=== PATIENT | male | born 1965 | race African-American/Black ===

== ENCOUNTER 2016-12-03 03:16 | Emergency (ER) | payer OTHER ==
[~2016-12-03] VITALS: Ht 185.4 cm; Wt 87.0 kg
[2016-12-03 03:26] VITALS: BP 143/80; PULSE 90; RESP 18; TEMP 98.1; O2SAT 100
[2016-12-03 03:29] VITALS: BP 158/103; PULSE 57; PULSE 61; RESP 18; O2SAT 100
[2016-12-03] MEDS ORDERED: SODIUM CHLORID 0.9% 500 ML INJ 500 ML IV ONE (03:30)
[2016-12-03] MEDS ORDERED: ceFAZolin 2 GM PREMIX 50 ML IV ONE (03:30)
[2016-12-03] MEDS ORDERED: SODIUM CHLORIDE 0.9% FLUSH 10 ML FLUSH IVF PRN (03:30)
[2016-12-03] MEDS ORDERED: ONDANSETRON HCL 4 MG/2 ML VIAL IVP ONE (03:30)
[2016-12-03] MEDS ORDERED: MORPHINE SULFATE 4 MG/ML INJ IV ONE (03:30)
[2016-12-03] MEDS ORDERED: AMLO5TAB2 PO (03:35)
--- NOTE | 2016-12-03 03:42 | PD ---
HPI Chief Complaint: Injury Time Seen by Provider: 03:21 Travel History International Travel<30 days: No Contact w/Intl Traveler<30days: No Traveled to known affect area: No History of Present Illness HPI The patient is a 51 year old male who presents to the [facility] emergency department with a history of accidentally having his third digit of the left hand pinched by the list of his tractor-trailer prior to arrival. The tip of the finger was amputated. The patient brought it in. The patient was brought in by ambulance services. The patient reports that he is right-handed. The patient denies having any other injuries associated with this. He reports that his tetanus was last updated in 2013. On review of systems, the patient denies any recent fevers, cough, congestion, chest pain, chest pressure, shortness of breath, abdominal pain, nausea, vomiting, or diarrhea. He denies having any urinary symptoms or neurologic symptoms. PFSH Past Medical History Narrative Medical The patient's past medical history is significant for hypertension. Hypertension: Yes Tetanus Vaccination: < 5 Years Influenza Vaccination: No Past Surgical History Narrative Surgical The Patient's past surgical history is significant for left arm skin grafts. Surgical History: No Previous Surgery Social History Alcohol Use: Yes (twice per week) Tobacco Use: Yes (occasionally) Substance Use: No Allergies-Medications (Allergen,Severity, Reaction): Coded Allergies: No Known Allergies (Unverified , 12/03/16) Reported Meds & Prescriptions Reported Meds & Active Scripts Active Reported Amlodipine (Amlodipine Besylate) 5 Mg Tab 5 Mg PO DAILY Review of Systems Except as stated in HPI: all other systems reviewed are Neg General / Constitutional: No: Fever Eyes: No: Visual changes HENT: No: Headaches Cardiovascular: No: Chest Pain or Discomfort Respiratory: No: Shortness of Breath Gastrointestinal: No: Abdominal Pain Genitourinary: No: Dysuria Musculoskeletal: Positive: Myalgias, Pain Skin: No Rash Neurologic: No: Weakness Psychiatric: No: Depression Endocrine: No: Polydipsia Hematologic/Lymphatic: No: Easy Bruising Physical Exam Narrative General: The patient is a well-developed well-nourished male in no acute distress. Head and Neck exam: Head is normocephalic atraumatic. Eyes: Pupils are equal round and reactive to light. Nose: Midline septum with pink mucous membranes Mouth: Dentition unremarkable. Moist mucus membranes. Posterior oropharynx is not erythematous. No tonsillar hypertrophy. Uvula midline. Airway patent. Neck: No palpable lymphadenopathy. No nuchal rigidity. No thyromegaly. Cardiovascular: Regular rate and rhythm without murmurs, gallops, or rubs. Lungs: Clear to auscultation bilaterally. No wheezes, rhonchi, or rales. Abdomen: Soft, without tenderness to palpation in all 4 quadrants of the abdomen. No guarding, rebound, or rigidity. Normal bowel sounds are audible. No tenderness on palpation of McBurney's point. Extremities: No clubbing, cyanosis, or edema. 2+ pulses in all 4 extremities. The area of interest is the left hand, the patient has a bandage in place over the third digit. The bandage was removed and the distal phalanx and the patient was noted to have an amputation just distal to the DIP joint involving the entire nail then including a two thirds of the finger pad. Neurologic Exam: Grossly nonfocal. Skin Exam: No rash noted. Data Data Last Documented VS Vital Signs Date Time Temp Pulse Resp B/P Pulse Ox O2 Delivery O2 Flow Rate FiO2 12/03/16 03:29 59 18 98 Room Air 12/03/16 03:29 158/103 12/03/16 03:26 98.1 Orders Finger ([id number]) (12/03/16 03:22) Complete Blood Count With Diff (12/03/16 03:22) Prothrombin Time / Inr (Pt) (12/03/16 03:22) Act Partial Throm Time (Ptt) (12/03/16 03:22) Iv Access Insert/Monitor (12/03/16 03:22) Ecg Monitoring (12/03/16 03:22) Oximetry (12/03/16 03:22) Cefazolin 2 Gm Premix (Ancef 2 Gm Premix (12/03/16 03:30) Morphine Inj (Morphine Inj) (12/03/16 03:30) Ondansetron Inj (Zofran Inj) (12/03/16 03:30) Sodium Chloride 0.9% Flush (Ns Flush) (12/03/16 03:30) Comprehensive Metabolic Panel (12/03/16 03:22) Sodium Chlorid 0.9% 500 Ml Inj (Ns 500 M (12/03/16 03:30) Povidone Iodine 10% Oint (Betadine 10% O (12/03/16 05:15) Labs Laboratory Tests Test 12/03/16 03:50 White Blood Count 4.5 TH/MM3 Red Blood Count 5.57 MIL/MM3 Hemoglobin 15.0 GM/DL Hematocrit 46.2 % Mean Corpuscular Volume 82.9 FL Mean Corpuscular Hemoglobin 26.8 PG Mean Corpuscular Hemoglobin 32.4 % Concent Red Cell Distribution Width 13.6 % Platelet Count 129 TH/MM3 Mean Platelet Volume 9.5 FL Neutrophils (%) (Auto) 41.6 % Lymphocytes (%) (Auto) 45.6 % Monocytes (%) (Auto) 8.6 % Eosinophils (%) (Auto) 2.9 % Basophils (%) (Auto) 1.3 % Neutrophils # (Auto) 1.9 TH/MM3 Lymphocytes # (Auto) 2.0 TH/MM3 Monocytes # (Auto) 0.4 TH/MM3 Eosinophils # (Auto) 0.1 TH/MM3 Basophils # (Auto) 0.1 TH/MM3 CBC Comment DIFF FINAL Differential Comment Prothrombin Time 10.9 SEC Prothromb Time International 1.0 RATIO Ratio Activated Partial 27.6 SEC Thromboplast Time Sodium Level 142 MEQ/L Potassium Level 3.8 MEQ/L Chloride Level 106 MEQ/L Carbon Dioxide Level 28.8 MEQ/L Anion Gap 7 MEQ/L Blood Urea Nitrogen 15 MG/DL Creatinine 0.91 MG/DL Estimat Glomerular Filtration 87 ML/MIN Rate Random Glucose 100 MG/DL Calcium Level 9.1 MG/DL Total Bilirubin 0.6 MG/DL Aspartate Amino Transf 32 U/L (AST/SGOT) Alanine Aminotransferase 59 U/L (ALT/SGPT) Alkaline Phosphatase 75 U/L Total Protein 7.5 GM/DL Albumin 4.1 GM/DL MDM Medical Decision Making Medical Screen Exam Complete: Yes Emergency Medical Condition: Yes Medical Record Reviewed: Yes Interpretation(s) Last Impressions Finger X-Ray 12/03/16 0322 Signed Impressions: Service Date/Time: Saturday, December 03, 2016 03:45 - CONCLUSION: Truncation of the distal third phalangeal tuft. Victor Hugo Tomlinson MD Differential Diagnosis Open fracture, versus distal amputation. Narrative Course During the course of the patients emergency department visit, the patients history, examination, and differential diagnosis were reviewed with the patient. The patient had IV access obtained and blood work sent for analysis. The patient was initially provided morphine for pain, Zofran for nausea, Ancef 2 g IV was administered. The patient reports that his tetanus was last updated in 2013, therefore this was not administered. The patients laboratory studies were reviewed and remarkable for a white count of 4.5, hemoglobin 15, platelets 129, lymphocytes 45.6, monos 8.6, CMP is remarkable for a GFR of 87, PT 10.9, PTT 27.6. Radiology studies were reviewed and remarkable for a chest x-ray that shows truncation of the distal third phalangeal tuft. A call was placed out to the hand surgeon on-call, Dr. Aguilar at approximate 4 AM regarding this patient's case. He recommended that the patient's amputated piece be debrided and sewn back into place to form a biological dressing. He recommended that the patient follow-up with him in his office on Friday. He recommended that the patient be placed on antibiotic for the next 10 days. Yareli the nurse practitioner was consulted regarding wound cleansing and repair. The patient was reexamined during the process of the repair. The amputated piece was replaced after debridement. The patient will be discharged home with a prescription for Keflex and Lortab. The patient is instructed to follow-up with Dr. Aguilar in his office on Friday. He is instructed to call in the morning for an appointment. The patient is resting comfortably and feels better, is alert and in no distress. The patients results and examination findings were discussed with the patient. The repeat examination is unremarkable and benign. The history, exam, diagnostic testing, and current condition do not suggest any significant pathology to warrant further testing, continued ED treatment, admission, or surgical evaluation at this point. The vital signs have been stable. The patient does not have uncontrollable pain, intractable vomiting, or other significant symptoms. The patient's condition is stable and appropriate for discharge. The patient will pursue further outpatient evaluation with a primary care physician or other designated or consulting physician as indicated in the discharge instructions. The patient expressed understanding and was agreeable with this plan. Diagnosis Primary Impression: Traumatic amputation of fingertip Qualified Code: S68.129A - Traumatic amputation of fingertip, initial encounter Referrals: Abdulaziz Aguilar III, MD 3 days Follow-up with Dr. Aguilar in his office on Friday. Patient Instructions: Finger Amputation (ED), General Instructions Scripts Cephalexin (Keflex)500 Mg [id number] Mg PO Q6H 1 Day Ref 0 Prov:Nisha Klein MD 12/03/16 Hydrocodone-Acetaminophen (Lortab)7.5-325 Mg Tab1 Tab PO Q4-6H PRN (PAIN) #20 TAB Ref 0 Prov:Nisha Klein MD 12/03/16 Disposition: 01 DISCHARGE HOME Condition: Stable Nisha Klein MD Dec 03, 2016 03:42
--- NOTE | 2016-12-03 03:53 | RADRPT ---
EXAM DATE/TIME: 12/03/2016 03:45 [facility] COMPARISON: No previous studies available for comparison. INDICATIONS : Left hand, third digit pain after finger getting caught in truck door. MEDICAL HISTORY : None. SURGICAL HISTORY : None. ENCOUNTER: Initial ACUITY: 1 day PAIN SCORE: 10/10 LOCATION: Left hand, third digit. FINDINGS: The distal phalanx of the third digit is truncated. CONCLUSION: Truncation of the distal third phalangeal tuft. Victor Hugo Tomlinson MD on December 03, 2016 at 3:52 Board Certified Radiologist. This report was verified electronically.
[2016-12-03 04:20] LABS: AUTOMATED NEUTROPHIL # 1.9 TH/MM3 (1.8-7.7); BASOPHIL # 0.1 TH/MM3 (0-0.2); BASOPHIL % 1.3 % (0.0-2.0); EOSINOPHIL # 0.1 TH/MM3 (0-0.4); EOSINOPHIL % 2.9 % (0.0-4.0); HEMATOCRIT 46.2 % (39.0-51.0); HEMO FLAGS DIFF FINAL; LYMPH % 45.6 % (9.0-44.0); MEAN CELL VOLUME 82.9 FL (80.0-100.0); MEAN CORPUSCULAR HEMOGLOBIN 26.8 PG (27.0-34.0); MEAN CORPUSCULAR HGB CONC 32.4 % (32.0-36.0); MONO % 8.6 % (0.0-8.0); NEUT % 41.6 % (16.0-70.0); PLATELET COUNT 129 TH/MM3 (150-450); RED BLOOD COUNT 5.57 MIL/MM3 (4.50-5.90); RED CELL DISTRIBUTION WIDTH 13.6 % (11.6-17.2); WHITE BLOOD COUNT 4.5 TH/MM3 (4.0-11.0)
[2016-12-03 04:27] LABS: APTT (PATIENT) 27.6 SEC (24.3-30.1); PROTHROMBIN TIME - PATIENT 10.9 SEC (9.8-11.6)
[2016-12-03 04:35] LABS: ALT (GPT) 59 U/L (12-78); ANION GAP 7 MEQ/L (5-15); AST (GOT) 32 U/L (15-37); BICARBONATE 28.8 MEQ/L (21.0-32.0); BLOOD UREA NITROGEN 15 MG/DL (7-18); CHLORIDE 106 MEQ/L (98-107); GLOMERULAR FILTRATION RATE 87 ML/MIN (>89); POTASSIUM 3.8 MEQ/L (3.5-5.1); SODIUM (NA) 142 MEQ/L (136-145)
[2016-12-03 04:37] LABS: ALKALINE PHOSPHATASE 75 U/L (45-117); TOTAL BILIRUBIN ADULT 0.6 MG/DL (0.2-1.0)
[2016-12-03] MEDS ORDERED: CEPH-460 PO (05:11)
[2016-12-03] MEDS ORDERED: HYDR-3534 PO (05:11)
[2016-12-03] MEDS ORDERED: POVIDONE IODINE 10% OINT 30 GM TUBE TOPICAL ONE (05:15)
--- NOTE | 2016-12-03 05:24 | PD ---
Physical Exam Date Seen by Provider: Dec 03, 2016 Time Seen by Provider: 05:21 Narrative For full history and physical examination please see previous provider's note. I was asked to replace fingertip. Data Data Last Documented VS Vital Signs Date Time Temp Pulse Resp B/P Pulse Ox O2 Delivery O2 Flow Rate FiO2 12/03/16 03:29 59 18 98 Room Air 12/03/16 03:29 158/103 12/03/16 03:26 98.1 Orders Finger ([id number]) (12/03/16 03:22) Complete Blood Count With Diff (12/03/16 03:22) Prothrombin Time / Inr (Pt) (12/03/16 03:22) Act Partial Throm Time (Ptt) (12/03/16 03:22) Iv Access Insert/Monitor (12/03/16 03:22) Ecg Monitoring (12/03/16 03:22) Oximetry (12/03/16 03:22) Cefazolin 2 Gm Premix (Ancef 2 Gm Premix (12/03/16 03:30) Morphine Inj (Morphine Inj) (12/03/16 03:30) Ondansetron Inj (Zofran Inj) (12/03/16 03:30) Sodium Chloride 0.9% Flush (Ns Flush) (12/03/16 03:30) Comprehensive Metabolic Panel (12/03/16 03:22) Sodium Chlorid 0.9% 500 Ml Inj (Ns 500 M (12/03/16 03:30) Povidone Iodine 10% Oint (Betadine 10% O (12/03/16 05:15) Labs Laboratory Tests Test 12/03/16 03:50 White Blood Count 4.5 TH/MM3 Red Blood Count 5.57 MIL/MM3 Hemoglobin 15.0 GM/DL Hematocrit 46.2 % Mean Corpuscular Volume 82.9 FL Mean Corpuscular Hemoglobin 26.8 PG Mean Corpuscular Hemoglobin 32.4 % Concent Red Cell Distribution Width 13.6 % Platelet Count 129 TH/MM3 Mean Platelet Volume 9.5 FL Neutrophils (%) (Auto) 41.6 % Lymphocytes (%) (Auto) 45.6 % Monocytes (%) (Auto) 8.6 % Eosinophils (%) (Auto) 2.9 % Basophils (%) (Auto) 1.3 % Neutrophils # (Auto) 1.9 TH/MM3 Lymphocytes # (Auto) 2.0 TH/MM3 Monocytes # (Auto) 0.4 TH/MM3 Eosinophils # (Auto) 0.1 TH/MM3 Basophils # (Auto) 0.1 TH/MM3 CBC Comment DIFF FINAL Differential Comment Prothrombin Time 10.9 SEC Prothromb Time International 1.0 RATIO Ratio Activated Partial 27.6 SEC Thromboplast Time Sodium Level 142 MEQ/L Potassium Level 3.8 MEQ/L Chloride Level 106 MEQ/L Carbon Dioxide Level 28.8 MEQ/L Anion Gap 7 MEQ/L Blood Urea Nitrogen 15 MG/DL Creatinine 0.91 MG/DL Estimat Glomerular Filtration 87 ML/MIN Rate Random Glucose 100 MG/DL Calcium Level 9.1 MG/DL Total Bilirubin 0.6 MG/DL Aspartate Amino Transf 32 U/L (AST/SGOT) Alanine Aminotransferase 59 U/L (ALT/SGPT) Alkaline Phosphatase 75 U/L Total Protein 7.5 GM/DL Albumin 4.1 GM/DL MDM Supervised Visit with JEANINE: Yes Procedures Procedure Narrative LACERATION LOCATION: Left second finger LENGTH: Complete fingertip avulsion NUMBER OF STITCHES/COY: 20 stitches REPAIR: The area of the laceration was prepped with Betadine and sterilely draped. 0.5% bupivacaine was used to perform a digital block on the left second finger. The wound was copiously irrigated and explored fingertip was replaced, fingertip will act as a natural Band-Aid. This was discussed with patient. The wound was closed using 5-0 Prolene. This was a 1 layer repair. Topical povidone iodine ointment and a sterile dressing was applied. The patient was advised to keep the dressing clean and dry. Patient tolerated the procedure well. Diagnosis Primary Impression: Traumatic amputation of fingertip Qualified Code: S68.129A - Traumatic amputation of fingertip, initial encounter Referrals: Abdulaziz Aguilar III, MD 3 days Follow-up with Dr. Aguilar in his office on Friday. Patient Instructions: General Instructions, Finger Amputation (ED) Scripts Cephalexin (Keflex)500 Mg [id number] Mg PO Q6H 1 Day Ref 0 Prov:Nisha Klein MD 12/03/16 Hydrocodone-Acetaminophen (Lortab)7.5-325 Mg Tab1 Tab PO Q4-6H PRN (PAIN) #20 TAB Ref 0 Prov:Nisha Klein MD 12/03/16 Disposition: 01 DISCHARGE HOME Condition: Stable Yareli Anderson Dec 03, 2016 05:24
== END 2016-12-03 05:50 | disposition home or self-care (01) ==
LOC: NEPC 03:16
DX: S68.123A Partial traumatic metacarpophalangeal amputation of left middle finger, initial encounter (principal); I10 Essential (primary) hypertension; Z72.0 Tobacco use; W31.89XA Contact with other specified machinery, initial encounter
CPT/HCPCS: 12031; 73140; 80053; 85025; 85610; 85730; 96374; 96375; 99284; J0690; J2270; J2405; J7040